=== PATIENT | female | born 1955 | race Two or more races ===

== ENCOUNTER 2022-02-18 13:33 | Emergency (ER) | payer OTHER ==
[~2022-02-18] VITALS: Ht 162.6 cm; Wt 75.3 kg
[~2022-02-18 13:33] MED LIST: COZAAR25 MG; LOSARTAN POTASS25 MG
== END 2022-02-18 16:15 ==
LOC: ER 13:33
DX: L25.9 Unspecified contact dermatitis, unspecified cause (principal)

== ENCOUNTER 2023-01-20 15:07 | Emergency (ER) | payer OTHER ==
[~2023-01-20] VITALS: Ht 165.1 cm; Wt 70.3 kg
[2023-01-20] MEDS ORDERED: SYNTHROID50 MCG PO (15:29)
[2023-01-20] MEDS ORDERED: CIPRODEX OTIC7.5 ML OT (17:17)
== END 2023-01-20 17:28 | disposition home or self-care (01) ==
LOC: ER 15:07
DX: H60.91 Unspecified otitis externa, right ear (principal); H92.01 Otalgia, right ear

== ENCOUNTER → 2024-03-07 | Emergency (ER) | payer OTHER ==
[~2024-03-07] VITALS: Ht 165.1 cm; Wt 74.8 kg
[~2024-03-07] MED LIST changes: +CIPRODEX OTIC7.5 ML OT; +DIPHENHYDRAMINE HCL 50 MG/ML VIAL 1ML IM ONE; +DIPHENHYDRAMINE HCL 50 MG/ML VIAL 1ML ONE; +METHYLPREDNISOLONE SOD SUCC 125 MG VIAL IM ONE; +METHYLPREDNISOLONE SOD SUCC 125 MG VIAL ONE; +SYNTHROID50 MCG PO
== END | disposition home or self-care (01) ==
LOC: ER 18:02
DX: R21 Rash and other nonspecific skin eruption (principal); I10 Essential (primary) hypertension; E03.9 Hypothyroidism, unspecified; Z88.0 Allergy status to penicillin

== ENCOUNTER → 2025-02-05 | Emergency (ER) | payer OTHER ==
[~2025-02-05] VITALS: Ht 165.1 cm; Wt 72.6 kg
[~2025-02-05] MED LIST changes: +CLINDAMYCIN PHOSPHATE 150 MG/ML (300mg) IM STA; +CLINDAMYCIN PHOSPHATE 150 MG/ML (300mg) ONE; -DIPHENHYDRAMINE HCL 50 MG/ML VIAL 1ML IM ONE; +DIPHENHYDRAMINE HCL 50 MG/ML VIAL 1ML IM STA; +FLUCONAZOLE 150 MG TABLET PO STA; -METHYLPREDNISOLONE SOD SUCC 125 MG VIAL IM ONE; -METHYLPREDNISOLONE SOD SUCC 125 MG VIAL ONE
[2025-02-05 21:50] LABS: BASO % 0.6 % (0.1-1.2); EOS # 0.22 (0.04-0.54); EOS % 2.2 % (0.7-7.0); LYMPH # 1.36 (1.18-3.74); LYMPH % 13.5 % (19.3-53.1); MEAN PLATELET VOLUME 10.30 fl (9.4-12.4); MONO # 0.87 (0.24-0.82); MONO % 8.7 % (4.7-12.5); NEUT # 7.51 (1.56-6.13); NEUT % 74.7 % (34.0-71.1); RED CELL DISTRIBUTION WIDTH 14.1 % (11.6-14.4)
[2025-02-05 22:18] LABS: BUN CREA RATIO 23.0 (7.0-25.0); CREATININE SERUM 0.92 mg/dL (0.55-1.02); GFR 60.7; GLUCOSE FASTING 111.0 mg/dL (65-100); OSMOLALITY SERUM 292.0 MOSM/KG (275-295)
== END | disposition left against medical advice (07) ==
LOC: ER 18:49
PROVIDERS: General Practice
DX: L97.528 Non-pressure chronic ulcer of other part of left foot with other specified severity (principal); Z88.0 Allergy status to penicillin; E03.8 Other specified hypothyroidism; I10 Essential (primary) hypertension

== ENCOUNTER → 2025-02-06 | Emergency (ER) | payer OTHER ==
[~2025-02-06] VITALS: Ht 165.1 cm; Wt 72.6 kg
[~2025-02-06] MED LIST changes: +ANTIBIOTICO; -CLINDAMYCIN PHOSPHATE 150 MG/ML (300mg) IM STA; -CLINDAMYCIN PHOSPHATE 150 MG/ML (300mg) ONE; +COZAAR100 MG PO; -DIPHENHYDRAMINE HCL 50 MG/ML VIAL 1ML IM STA; -DIPHENHYDRAMINE HCL 50 MG/ML VIAL 1ML ONE; -FLUCONAZOLE 150 MG TABLET PO STA; +LEVOTHYROXINE25 MCG PO; +ZYRTEC10 M3 PO; +levoFLOXacin IN DEXTROSE 5 % 500MG/100ML PIGGYBAG IV ONE; +levoFLOXacin IN DEXTROSE 5 % 500MG/100ML PIGGYBAG IV STA
[2025-02-06 19:07] LABS: BASO % 0.8 % (0.1-1.2); EOS # 0.21 (0.04-0.54); EOS % 2.4 % (0.7-7.0); LYMPH # 1.79 (1.18-3.74); LYMPH % 20.3 % (19.3-53.1); MEAN PLATELET VOLUME 10.40 fl (9.4-12.4); MONO # 0.83 (0.24-0.82); MONO % 9.4 % (4.7-12.5); NEUT # 5.89 (1.56-6.13); NEUT % 66.9 % (34.0-71.1); RED CELL DISTRIBUTION WIDTH 13.9 % (11.6-14.4)
[2025-02-06 19:42] LABS: ALT/SGPT 20.0 U/L (12-78); AST/SGOT 19.0 U/L (15-37); BILIRUBIN TOTAL 0.42 mg/dL (0.3-1.2); BUN CREA RATIO 20.0 (7.0-25.0); CREATININE SERUM 1.02 mg/dL (0.55-1.02); GFR 53.89; GLOBULINA 3.5 G/DL (2.4-3.5); GLUCOSE FASTING 87.0 mg/dL (65-100); OSMOLALITY SERUM 291.0 MOSM/KG (275-295)
== END | disposition home or self-care (01) ==
LOC: ER 15:13
PROVIDERS: General Practice
DX: L03.116 Cellulitis of left lower limb (principal); Z88.0 Allergy status to penicillin

== ENCOUNTER 2025-02-12 17:26 | Inpatient (IN) | payer OTHER ==
[~2025-02-12] VITALS: Ht 152.4 cm; Wt 72.6 kg
[~2025-02-12 17:26] MED LIST changes: -ANTIBIOTICO; -COZAAR100 MG PO; -LEVOTHYROXINE25 MCG PO; -ZYRTEC10 M3 PO; -levoFLOXacin IN DEXTROSE 5 % 500MG/100ML PIGGYBAG IV ONE; -levoFLOXacin IN DEXTROSE 5 % 500MG/100ML PIGGYBAG IV STA
--- NOTE | 2025-02-12 18:31 | NUR ---
PACIENTE ALERTA Y ORIENTAD A X3. REFIERE ARDOR, ENROJESIMIENTO Y DOLOR EN PIE IZQ. INDICA SE ATENDIO HACE 1 SEMANA LE INDICARON CELULITIS LA MISMA REFIERE NO ESTABA DE ACUERDO CON SER ADMITIDA. REFIERE EN TRATAMIENTO MARIELLA NO MEJORA.
[2025-02-12] MEDS ORDERED: LEVOTHYROXINE25 MCG PO (18:36)
[2025-02-12] MEDS ORDERED: COZAAR100 MG PO (18:36)
[2025-02-12] MEDS ORDERED: ANTIBIOTICO (18:36)
[2025-02-12] MEDS ORDERED: ZYRTEC10 M3 PO (18:37)
[2025-02-12] MEDS ORDERED: DIPHENHYDRAMINE HCL 50 MG/ML VIAL 1ML IV ONE (20:00)
[2025-02-12] MEDS ORDERED: METHYLPREDNISOLONE SOD SUCC 125 MG VIAL IV ONE (20:00)
[2025-02-12] MEDS ORDERED: VANCOMYCIN HCL 1,000 MG VIAL IV ONE (20:00)
[2025-02-12] MEDS ORDERED: FAMOTIDINE/PF 20 MG/2 ML VIAL IV ONE (20:00)
[2025-02-12] MEDS ORDERED: ACETAMINOPHEN 500 MG GEL..CAP PO ONE ×2 (20:00→21:09)
[2025-02-12] MEDS ORDERED: DIPHENHYDRAMINE HCL 50 MG/ML VIAL 1ML ONE (21:09)
[2025-02-12] MEDS ORDERED: METHYLPREDNISOLONE SOD SUCC 125 MG VIAL ONE (21:09)
[2025-02-12] MEDS ORDERED: FAMOTIDINE/PF 20 MG/2 ML VIAL ONE (21:10)
[2025-02-12] MEDS ORDERED: VANCOMYCIN HCL 1,000 MG VIAL ONE (21:10)
[2025-02-12 21:52] LABS: BASO % 1.0 % (0.1-1.2); EOS # 0.26 (0.04-0.54); EOS % 2.9 % (0.7-7.0); LYMPH # 1.76 (1.18-3.74); LYMPH % 19.6 % (19.3-53.1); MEAN PLATELET VOLUME 10.10 fl (9.4-12.4); MONO # 1.10 (0.24-0.82); NEUT # 5.73 (1.56-6.13); NEUT % 64.0 % (34.0-71.1); RED CELL DISTRIBUTION WIDTH 13.8 % (11.6-14.4)
--- NOTE | 2025-02-12 21:52 | NUR ---
SE ORIENTA A PACIENTE SOBRE ORDEN MEDICA LA MISMA REFIERE ENTENDER Y ACEPTA.
[2025-02-12 22:00] LABS: MONO % 12.3 % (4.7-12.5)
[2025-02-12 22:05] LABS: ERYTHROCYTE SEDIMENTATION RATE 45 mm/hr (0-30)
[2025-02-12 22:09] LABS: INR 0.98
[2025-02-12 22:14] LABS: ALT/SGPT 21.0 U/L (12-78); AST/SGOT 25.0 U/L (15-37); BILIRUBIN TOTAL 0.19 mg/dL (0.3-1.2); BUN CREA RATIO 19.0 (7.0-25.0); CREATININE SERUM 0.97 mg/dL (0.55-1.02); GFR 57.11; GLOBULINA 3.6 G/DL (2.4-3.5); GLUCOSE FASTING 94.0 mg/dL (65-100); OSMOLALITY SERUM 288.0 MOSM/KG (275-295)
[2025-02-12] MEDS ORDERED: CIPROFLOXACIN IN 5 % DEXTROSE 200 ML IV ONE (23:45)
--- NOTE | 2025-02-13 | NUR ---
SE RECIBE PTE ALERTA Y ORIENTADA X3 CANALIZADA EN H/L, AL MOMENTO PENDIENTE CONSULTA CON MEDICINA INTERNA.
[2025-02-13] MEDS ORDERED: CIPROFLOXACIN IN 5 % DEXTROSE 400 MG/200 ML PIGGYBAG IV ONE (01:18)
[2025-02-13 01:52] LABS: URINE APPEARANCE Cloudy; URINE BILIRRUBIN Negative (NEGATIVE); URINE BLOOD Moderate; URINE COLOR Yellow; URINE GLUCOSE Negative (NEGATIVE); URINE KETONE Negative (NEGATIVE); URINE LEUKOCYTE Negative; URINE NITRATE Negative; URINE PROTEIN 30 (NEGATIVE); URINE UROBILINOGEN 0.2 E.U./dl
[2025-02-13 01:56] LABS: URINE BACTERIA 178.3 uL (0.0-1933); URINE EPITHELIAL CELLS 1.5 uL (0.0-38.8); URINE RBC 4.2 uL (0.0-20.8); URINE WBC 3.0 uL (0.0-23.2)
[2025-02-13 02:38] LABS: URINE CAST 0.84 uL (0.0-1.40); URINE CRYSTALS MODERATE /HPF
--- NOTE | 2025-02-13 03:40 | NUR ---
PACIENTE ALERTA Y ORIENTADA X3. SE ORIENTA ACERCA DE TRATAMIENTO. REFIERE ENTENDER Y ACEPTAR. SE ADMINISTRA MEDICAMENTO OBED PRESCRITO.
[2025-02-13] MEDS ORDERED: 0.9 % SODIUM CHLORIDE 1,000 ML IV SCH (14:15)
[2025-02-13] MEDS ORDERED: CIPROFLOXACIN IN 5 % DEXTROSE 200 ML IV SCH (14:16)
[2025-02-13] MEDS ORDERED: VANCOMYCIN HCL 1,000 MG VIAL IV SCH (14:16)
[2025-02-13] MEDS ORDERED: FAMOTIDINE/PF 20 MG in 0.9 % SODIUM CHLORIDE 8 ML IV PUSH SCH (14:17)
[2025-02-13] MEDS ORDERED: HYDROCORTISONE 2.5% 20 GM TUBE TOP SCH (14:19)
[2025-02-13] MEDS ORDERED: LOSARTAN POTASSIUM 100 MG TABLET PO SCH (14:21)
[2025-02-13] MEDS ORDERED: DIPHENHYDRAMINE HCL 50 MG/ML VIAL 1ML IV PRN (14:30)
[2025-02-13] MEDS ORDERED: ONDANSETRON HCL 2 MG/ML VIAL IV PRN (14:30)
[2025-02-13] MEDS ORDERED: ACETAMINOPHEN 500 MG GEL..CAP PO PRN (14:30)
[2025-02-13] MEDS ORDERED: FAMOTIDINE/PF 20 MG/2 ML VIAL ONE (16:33)
[2025-02-13] MEDS ORDERED: VANCOMYCIN HCL 1,000 MG VIAL ONE (16:33)
[2025-02-14 00:58] VITALS: BP 122/86; O2SAT 99
[2025-02-14] MEDS ORDERED: LEVOTHYROXINE SODIUM 25 MCG TABLET PO SCH (06:00)
[2025-02-14 07:18] LABS: BASO % 0.6 % (0.1-1.2); EOS # 0.04 (0.04-0.54); EOS % 0.3 % (0.7-7.0); LYMPH # 1.93 (1.18-3.74); LYMPH % 13.1 % (19.3-53.1); MEAN PLATELET VOLUME 11.00 fl (9.4-12.4); MONO # 1.29 (0.24-0.82); MONO % 8.7 % (4.7-12.5); NEUT # 11.35 (1.56-6.13); NEUT % 77.0 % (34.0-71.1); RED CELL DISTRIBUTION WIDTH 13.8 % (11.6-14.4)
[2025-02-14 08:06] LABS: ALT/SGPT 25.0 U/L (12-78); AST/SGOT 27.0 U/L (15-37); BILIRUBIN TOTAL 0.37 mg/dL (0.3-1.2); BUN CREA RATIO 22.0 (7.0-25.0); CREATININE SERUM 1.19 mg/dL (0.55-1.02); GFR 45.11; GLOBULINA 3.8 G/DL (2.4-3.5); GLUCOSE FASTING 87.0 mg/dL (65-100); OSMOLALITY SERUM 291.0 MOSM/KG (275-295)
[2025-02-14] MEDS ORDERED: FLUCONAZOLE IN NACL,ISO-OSM 50 ML IV SCH (09:00)
[2025-02-14] MEDS ORDERED: ENOXAPARIN SODIUM 40 MG/0.4 ML SYRINGE SUBCUTANEO SCH (09:00)
[2025-02-14] MEDS ORDERED: METHYLPREDNISOLONE SOD SUCC 40 MG VIAL IV SCH (09:37)
[2025-02-14 10:21] VITALS: BP 134/79; O2SAT 97
[2025-02-14] MEDS ORDERED: FLUCONAZOLE IN NACL,ISO-OSM 2 MG/ML ML IV SCH (17:00)
[2025-02-14 17:41] VITALS: BP 155/85; O2SAT 97
[2025-02-14] MEDS ORDERED: EMOLLIENTS 6 OZ BOTTLE TOP SCH (19:20)
[2025-02-15 02:27] VITALS: BP 151/93; O2SAT 97
[2025-02-15] MEDS ORDERED: ORPHENADRINE CITRATE 30 MG/ML AMPUL IV STA (08:42)
[2025-02-15] MEDS ORDERED: EMOLLIENTS 6 OZ BOTTLE TOP SCH (09:00)
[2025-02-15] MEDS ORDERED: ORPHENADRINE CITRATE 30 MG/ML AMPUL IV SCH (09:00)
[2025-02-15 09:47] VITALS: BP 145/69; O2SAT 98
[2025-02-15 09:49] VITALS: BP 149/70; O2SAT 98
== END 2025-02-15 10:55 | disposition left against medical advice (07) | DRG 603 ==
LOC: ER → SEC-K 02-13 17:01 → MEDJ 02-13 17:01
PROVIDERS: General Practice; ADMIT Internal Medicine; ATTEND Internal Medicine
DX: L03.116 Cellulitis of left lower limb (principal); L97.529 Non-pressure chronic ulcer of other part of left foot with unspecified severity; L27.1 Localized skin eruption due to drugs and medicaments taken internally; L50.0 Allergic urticaria; D72.829 Elevated white blood cell count, unspecified; N18.30 Chronic kidney disease, stage 3 unspecified; E03.9 Hypothyroidism, unspecified; Z88.6 Allergy status to analgesic agent; Z88.0 Allergy status to penicillin; Z53.29 Procedure and treatment not carried out because of patient's decision for other reasons